=== PATIENT | female | born 1970 | race Caucasian/White ===

== ENCOUNTER 2018-04-14 08:51 | Inpatient (IN) | payer BC, MEDICAID ==
[~2018-04-14] VITALS: Ht 158.8 cm; Wt 109.1 kg
[~2018-04-14 08:51] MED LIST: LISI10TA PO
[2018-04-14] MEDS ORDERED: metoprolol tartrate 50mg tablet PO ONE (09:15)
[2018-04-14 09:18] LABS: BASOPHILS % (AUTO) 0.6 % (0-1); EOSINOPHILS # (AUTO) 0.2 X10'3 (0-0.9); EOSINOPHILS % (AUTO) 2.6 % (0-6); LYMPHOCYTES # (AUTO) 3.1 X10'3 (1.1-4.8); LYMPHOCYTES % (AUTO) 37.5 % (21-51); MEAN CORPUSCULAR HEMOGLOBIN 27.5 PG (27.0-31.0); MEAN CORPUSCULAR HGB CONC 33.3 % (33.0-36.5); MEAN CORPUSCULAR VOLUME 82.6 FL (78-98); MONOCYTES # (AUTO) 0.6 X10'3 (0-0.9); MONOCYTES % (AUTO) 7.3 % (2-12); NEUTROPHILS # (AUTO) 4.3 X10'3 (1.8-7.7); PLATELET COUNT 341 X10'3 (140-440); RED BLOOD COUNT 5.46 X10'6 (4.20-5.60); RED CELL DISTRIBUTION WIDTH 12.8 % (11.5-14.5); WHITE BLOOD COUNT 8.2 X10'3 (4.5-11.0)
[2018-04-14 09:31] LABS: ALANINE AMINOTRANSFERASE 22 U/L (12-78); ALBUMIN 3.7 G/DL (3.4-5.0); ALKALINE PHOSPHATASE 77 IU/L (46-116); ANION GAP 7 (8-16); ASPARTATE AMINO TRANSFERASE 13 U/L (10-37); BILIRUBIN,TOTAL 0.5 MG/DL (0.1-1.0); BLOOD UREA NITROGEN 12 MG/DL (7-18); CHLORIDE 102 MMOL/L (99-107); CREATININE 0.86 MG/DL (0.40-0.90); GLUCOSE 188 MG/DL (70-104); POTASSIUM 3.3 MMOL/L (3.5-5.1); SODIUM 138 MMOL/L (135-145); TOTAL CARBON DIOXIDE 29.3 MMOL/L (24-32); TOTAL PROTEIN 7.4 G/DL (6.4-8.2); eGFR 70 ML/MIN
[2018-04-14 09:40] LABS: TROPONIN I < 0.04 NG/ML (0.0-0.05)
[2018-04-14] MEDS ORDERED: aspirin 325mg tablet PO ONE ×2 (09:55→10:45)
[2018-04-14] MEDS ORDERED: normal saline 1000ML IV soln IVB ONE (09:55)
[2018-04-14 10:01] LABS: PARTIAL THROMBOPLASTIN TIME 25 SECONDS (22-32); PROTHROMBIN TIME 10.4 SECONDS (9.0-12.0)
[2018-04-14] MEDS ORDERED: CLOP75TA15 PO (10:32)
[2018-04-14] MEDS ORDERED: MESSAGE TO PHARMACY PO ONE (10:35)
[2018-04-14] MEDS ORDERED: dextrose ORAL solution 15 GM/59 ML bottle PO PRN ×2 (10:35)
[2018-04-14] MEDS ORDERED: magnesium hydroxide 30ml (MOM) UD suspension PO PRN (10:35)
[2018-04-14] MEDS ORDERED: dextrose 50%-water 50ml dispensing syringe IV PRN ×2 (10:35)
[2018-04-14] MEDS ORDERED: glucagon, human recombinant 1mg kit SUBCUT PRN (10:35)
[2018-04-14] MEDS ORDERED: mag hydrox/Alum hydrox/simeth 30ml oral suspension PO PRN (10:35)
[2018-04-14] MEDS ORDERED: acetaminophen 325mg tablet PO PRN (10:35)
[2018-04-14] MEDS ORDERED: VENL37.55 PO (10:40)
[2018-04-14 11:20] VITALS: BP 177/96
[2018-04-14] MEDS: cloNIDine 0.1 mg tablet PO PRN (11:59)
[2018-04-14] MEDS ORDERED: potassium Cl 40MEQ/NS 500ml 500 ML IV PRN ×2 (12:45)
[2018-04-14] MEDS: potassium Cl 20 mEq SR tablet PO PRN ×3 (13:43→22:08)
[2018-04-14] MEDS ORDERED: hydrALAZINE 25 MG tablet PO SCH (16:00)
[2018-04-14] MEDS: meclizine 12.5mg tablet PO PRN (17:46)
[2018-04-14 18:00] VITALS: BP 151/90
[2018-04-14] MEDS: insulin Lispro (HumaLOG) vial - multi-dose SQ SCH (18:57)
[2018-04-14] MEDS: venlafaxine XR 37.5mg cap (Q24H) PO SCH (19:38)
[2018-04-14 20:00] VITALS: BP_SYST 155; BP_SYST 156; BP_SYST 164; BP_DIAS 82; BP_DIAS 87; BP_DIAS 93
[2018-04-14] MEDS: insulin glargine (Lantus) pen - multi-dose SQ SCH (20:58)
[2018-04-14] MEDS ORDERED: insulin glargine (Lantus) pen - multi-dose SQ SCH (21:00)
[2018-04-14] MEDS: ondansetron/PF 4mg/2ml inj IV PRN (21:08)
[2018-04-14 22:00] VITALS: BP 181/95
[2018-04-14 22:55] VITALS: BP 149/79
[2018-04-15] VITALS (9 sets, daily range): BP systolic 137–190; BP diastolic 68–112
[2018-04-15] MEDS: ondansetron/PF 4mg/2ml inj IV PRN ×2 (03:28→12:32)
[2018-04-15] MEDS: meclizine 12.5mg tablet PO PRN (05:37)
[2018-04-15] MEDS: cloNIDine 0.1 mg tablet PO PRN ×2 (05:37→17:26)
[2018-04-15 06:58] LABS: BASOPHILS % (AUTO) 0.1 % (0-1); EOSINOPHILS % (AUTO) 0.3 % (0-6); HEMATOCRIT 42.7 % (35.0-45.0); HEMOGLOBIN 14.6 g/dl (12.0-16.0); LYMPHOCYTES # (AUTO) 1.4 X10'3 (1.1-4.8); LYMPHOCYTES % (AUTO) 13.2 % (21-51); MEAN CORPUSCULAR HEMOGLOBIN 28.2 PG (27.0-31.0); MEAN CORPUSCULAR HGB CONC 34.1 % (33.0-36.5); MEAN CORPUSCULAR VOLUME 82.5 FL (78-98); MEAN PLATELET VOLUME 8.1 FL (7.4-10.4); MONOCYTES # (AUTO) 0.4 X10'3 (0-0.9); MONOCYTES % (AUTO) 3.6 % (2-12); NEUTROPHILS # (AUTO) 8.6 X10'3 (1.8-7.7); NEUTROPHILS % (AUTO) 82.8 % (42-75); PLATELET COUNT 333 X10'3 (140-440); RED BLOOD COUNT 5.17 X10'6 (4.20-5.60); RED CELL DISTRIBUTION WIDTH 12.9 % (11.5-14.5); WHITE BLOOD COUNT 10.4 X10'3 (4.5-11.0)
[2018-04-15 07:17] LABS: ALANINE AMINOTRANSFERASE 19 U/L (12-78); ALBUMIN 3.5 G/DL (3.4-5.0); ALKALINE PHOSPHATASE 72 IU/L (46-116); ANION GAP 9 (8-16); ASPARTATE AMINO TRANSFERASE 11 U/L (10-37); BILIRUBIN,TOTAL 0.4 MG/DL (0.1-1.0); BLOOD UREA NITROGEN 13 MG/DL (7-18); BUN/CREATININE RATIO 13.7 (6.6-38.0); CALCIUM 8.8 MG/DL (8.5-10.1); CHLORIDE 101 MMOL/L (99-107); CREATININE 0.95 MG/DL (0.40-0.90); GLUCOSE 238 MG/DL (70-104); MAGNESIUM 1.8 MG/DL (1.5-2.4); POTASSIUM 3.5 MMOL/L (3.5-5.1); SODIUM 138 MMOL/L (135-145); TOTAL CARBON DIOXIDE 27.8 MMOL/L (24-32); TOTAL PROTEIN 7.1 G/DL (6.4-8.2); eGFR 63 ML/MIN
[2018-04-15] MEDS: clopidogrel 75mg tablet PO SCH ×3 (07:21→12:33)
[2018-04-15] MEDS: venlafaxine XR 37.5mg cap (Q24H) PO SCH ×4 (07:21→19:29)
[2018-04-15] MEDS: lisinopril 10 MG tablet PO SCH ×3 (07:21→12:33)
[2018-04-15] MEDS: enoxaparin 40mg/0.4ml syringe SUBCUT SCH ×2 (07:21→08:23)
[2018-04-15] MEDS: insulin Lispro (HumaLOG) vial - multi-dose SQ SCH ×3 (08:21→18:34)
[2018-04-15] MEDS ORDERED: atorvastatin 20mg tablet PO SCH (09:20)
[2018-04-15 10:00] LABS: CHOLESTEROL 247 MG/DL (0-200); HDL CHOLESTEROL 49 MG/DL (35-60); LDL CHOLESTEROL 167 MG/DL (50-100); TRIGLYCERIDES 174 MG/DL (20-135)
[2018-04-15] MEDS: normal saline 1000ml 1,000 ML IV SCH ×2 (10:43→19:29)
[2018-04-15] MEDS ORDERED: atorvastatin 20mg tablet PO ONE (13:30)
[2018-04-15] MEDS ORDERED: gadopentetate dimeglumine 7.5 MMOL/15 ML syringe ONE ×2 (16:22)
[2018-04-15] MEDS ORDERED: clopidogrel 75mg tablet PO ONE (16:25)
[2018-04-15] MEDS: meclizine 12.5mg tablet PO SCH ×2 (17:26→19:29)
[2018-04-15 21:07] LABS: CLARITY,URINE CLEAR (Clear); COLOR,URINE YELLOW (Yellow); GLUCOSE, URINE 100 mg/dl (Neg); KETONES,URINE NEGATIVE (Neg); LEUKOCYTE ESTERASE ,URINE NEGATIVE (Neg); NITRITES, URINE NEGATIVE (Neg); OCCULT BLOOD,URINE NEGATIVE (Neg); PROTEIN,URINE 100 mg/dl (Neg); UROBILINOGEN,URINE 0.2 E.U/dL (0.2-1.0)
[2018-04-15 21:08] LABS: UA COLLECTION TYPE NON-SPECIFIED
[2018-04-15 21:16] LABS: BACTERIA,URINE FEW /HPF (Neg); MUCUS STRANDS MODERATE /LPF (Neg); RBC,URINE 0-2 /HPF (0-2); SQUAMOUS EPITHELIAL CELL,UR FEW /LPF (FEW); WBC,URINE 0-4 /HPF (0-4)
[2018-04-15 21:17] LABS: URINE AMPHETAMINE SCREEN NEGATIVE (Neg); URINE BARBITUATE SCREEN NEGATIVE (Neg); URINE BENZODIAZEPINES SCREEN NEGATIVE (Neg); URINE CANNABINOID SCREEN NEGATIVE (Neg); URINE COCAINE SCREEN NEGATIVE (Neg); URINE METHADONE SCREEN NEGATIVE (Neg); URINE OPIATE SCREEN NEGATIVE (Neg); URINE PHENCYCLIDINE SCREEN NEGATIVE (Neg)
[2018-04-15] MEDS: insulin glargine (Lantus) pen - multi-dose SQ SCH (21:41)
[2018-04-16] VITALS (9 sets, daily range): BP systolic 119–188; BP diastolic 75–103
[2018-04-16] MEDS: meclizine 12.5mg tablet PO SCH ×4 (02:05→19:30)
[2018-04-16] MEDS: normal saline 1000ml 1,000 ML IV SCH ×3 (04:43→18:20)
[2018-04-16 05:50] LABS: BASOPHILS % (AUTO) 0.3 % (0-1); EOSINOPHILS # (AUTO) 0.1 X10'3 (0-0.9); EOSINOPHILS % (AUTO) 1.2 % (0-6); HEMATOCRIT 37.9 % (35.0-45.0); HEMOGLOBIN 12.4 g/dl (12.0-16.0); LYMPHOCYTES # (AUTO) 3.5 X10'3 (1.1-4.8); LYMPHOCYTES % (AUTO) 31.8 % (21-51); MEAN CORPUSCULAR HEMOGLOBIN 27.1 PG (27.0-31.0); MEAN CORPUSCULAR HGB CONC 32.8 % (33.0-36.5); MEAN CORPUSCULAR VOLUME 82.7 FL (78-98); MONOCYTES # (AUTO) 0.7 X10'3 (0-0.9); MONOCYTES % (AUTO) 6.3 % (2-12); NEUTROPHILS # (AUTO) 6.7 X10'3 (1.8-7.7); NEUTROPHILS % (AUTO) 60.4 % (42-75); PLATELET COUNT 311 X10'3 (140-440); RED BLOOD COUNT 4.58 X10'6 (4.20-5.60); RED CELL DISTRIBUTION WIDTH 13.6 % (11.5-14.5); WHITE BLOOD COUNT 11.2 X10'3 (4.5-11.0)
[2018-04-16 06:23] LABS: ALANINE AMINOTRANSFERASE 18 U/L (12-78); ALBUMIN 2.9 G/DL (3.4-5.0); ALBUMIN/GLOBULIN RATIO 0.9 (1.1-1.5); ALKALINE PHOSPHATASE 56 IU/L (46-116); ANION GAP 8 (8-16); ASPARTATE AMINO TRANSFERASE 9 U/L (10-37); BILIRUBIN,TOTAL 0.4 MG/DL (0.1-1.0); BLOOD UREA NITROGEN 15 MG/DL (7-18); BUN/CREATININE RATIO 14.7 (6.6-38.0); CALCIUM 8.3 MG/DL (8.5-10.1); CHLORIDE 106 MMOL/L (99-107); CREATININE 1.02 MG/DL (0.40-0.90); GLUCOSE 135 MG/DL (70-104); MAGNESIUM 1.8 MG/DL (1.5-2.4); SODIUM 143 MMOL/L (135-145); TOTAL CARBON DIOXIDE 29.5 MMOL/L (24-32); eGFR 58 ML/MIN
[2018-04-16] MEDS: clopidogrel 75mg tablet PO SCH (08:01)
[2018-04-16] MEDS: potassium Cl 20 mEq SR tablet PO PRN ×3 (08:01→16:58)
[2018-04-16] MEDS: venlafaxine XR 37.5mg cap (Q24H) PO SCH ×2 (08:01→19:30)
[2018-04-16] MEDS: enoxaparin 40mg/0.4ml syringe SUBCUT SCH (08:02)
[2018-04-16] MEDS: atorvastatin 20mg tablet PO SCH (08:02)
[2018-04-16] MEDS: lisinopril 10 MG tablet PO SCH (08:02)
[2018-04-16] MEDS: cloNIDine 0.1 mg tablet PO PRN ×2 (12:06→16:58)
[2018-04-16] MEDS: insulin Lispro (HumaLOG) vial - multi-dose SQ SCH (13:50)
[2018-04-16] MEDS ORDERED: magnesium 1gm/100ml D5W IVPB 100 ML IV PRN (17:50)
[2018-04-16] MEDS ORDERED: magnesium 4gm in 100ml NS 100 ML IV PRN (17:50)
[2018-04-16 19:17] LABS: MAGNESIUM 1.6 MG/DL (1.5-2.4); POTASSIUM 3.8 MMOL/L (3.5-5.1)
[2018-04-16] MEDS: insulin glargine (Lantus) pen - multi-dose SQ SCH (21:19)
[2018-04-17] VITALS (7 sets, daily range): BP systolic 122–202; BP diastolic 70–111
[2018-04-17] MEDS: meclizine 12.5mg tablet PO SCH ×2 (02:05→07:45)
[2018-04-17] MEDS: normal saline 1000ml 1,000 ML IV SCH ×2 (02:20→10:38)
[2018-04-17 05:24] LABS: BASOPHILS % (AUTO) 0.4 % (0-1); EOSINOPHILS # (AUTO) 0.1 X10'3 (0-0.9); EOSINOPHILS % (AUTO) 1.4 % (0-6); HEMATOCRIT 41.5 % (35.0-45.0); HEMOGLOBIN 13.8 g/dl (12.0-16.0); LYMPHOCYTES # (AUTO) 3.5 X10'3 (1.1-4.8); MEAN CORPUSCULAR HEMOGLOBIN 27.7 PG (27.0-31.0); MEAN CORPUSCULAR HGB CONC 33.3 % (33.0-36.5); MEAN CORPUSCULAR VOLUME 83.3 FL (78-98); MEAN PLATELET VOLUME 7.9 FL (7.4-10.4); MONOCYTES # (AUTO) 0.7 X10'3 (0-0.9); MONOCYTES % (AUTO) 6.9 % (2-12); NEUTROPHILS # (AUTO) 5.7 X10'3 (1.8-7.7); NEUTROPHILS % (AUTO) 56.3 % (42-75); PLATELET COUNT 305 X10'3 (140-440); RED BLOOD COUNT 4.99 X10'6 (4.20-5.60); RED CELL DISTRIBUTION WIDTH 14.4 % (11.5-14.5); WHITE BLOOD COUNT 10.1 X10'3 (4.5-11.0)
[2018-04-17 05:50] LABS: ALANINE AMINOTRANSFERASE 16 U/L (12-78); ALBUMIN 3.2 G/DL (3.4-5.0); ALBUMIN/GLOBULIN RATIO 0.9 (1.1-1.5); ALKALINE PHOSPHATASE 66 IU/L (46-116); ANION GAP 6 (8-16); ASPARTATE AMINO TRANSFERASE 7 U/L (10-37); BILIRUBIN,TOTAL 0.5 MG/DL (0.1-1.0); BLOOD UREA NITROGEN 13 MG/DL (7-18); BUN/CREATININE RATIO 13.4 (6.6-38.0); CALCIUM 8.4 MG/DL (8.5-10.1); CHLORIDE 103 MMOL/L (99-107); CREATININE 0.97 MG/DL (0.40-0.90); GLUCOSE 103 MG/DL (70-104); MAGNESIUM 1.6 MG/DL (1.5-2.4); POTASSIUM 3.4 MMOL/L (3.5-5.1); SODIUM 140 MMOL/L (135-145); TOTAL CARBON DIOXIDE 31.1 MMOL/L (24-32); TOTAL PROTEIN 6.7 G/DL (6.4-8.2); eGFR 61 ML/MIN
[2018-04-17] MEDS: cloNIDine 0.1 mg tablet PO PRN (06:00)
[2018-04-17] MEDS: venlafaxine XR 37.5mg cap (Q24H) PO SCH (07:45)
[2018-04-17] MEDS: atorvastatin 20mg tablet PO SCH (07:46)
[2018-04-17] MEDS: clopidogrel 75mg tablet PO SCH (07:46)
[2018-04-17] MEDS: lisinopril 10 MG tablet PO SCH (07:46)
[2018-04-17] MEDS: enoxaparin 40mg/0.4ml syringe SUBCUT SCH (07:51)
[2018-04-17] MEDS: insulin Lispro (HumaLOG) vial - multi-dose SQ SCH ×2 (09:08→13:32)
[2018-04-17] MEDS: potassium Cl 20 mEq SR tablet PO PRN (09:10)
[2018-04-17] MEDS ORDERED: ASPI-1071 PO (10:51)
[2018-04-17] MEDS ORDERED: ATOR20TA66 PO (10:51)
[2018-04-17] MEDS ORDERED: meclizine 12.5mg tablet PO SCH (14:00)
[2018-04-17] MEDS ORDERED: potassium Cl 20 mEq SR tablet PO PRN (14:25)
[2018-04-18] MEDS ORDERED: aspirin 81mg tablet.DR PO SCH (08:00)
== END 2018-04-17 17:11 | DRG 46 ==
LOC: ER 08:51 → ED HOLD 10:33 → ORTHO 4S 12:10
PROVIDERS: ADMIT Internal Medicine; ATTEND Family Medicine
DX: I66.8 Occlusion and stenosis of other cerebral arteries (principal); E11.65 Type 2 diabetes mellitus with hyperglycemia; Z79.82 Long term (current) use of aspirin; E66.01 Morbid (severe) obesity due to excess calories; E78.00 Pure hypercholesterolemia, unspecified; I10 Essential (primary) hypertension; F32.9 Major depressive disorder, single episode, unspecified; I25.10 Atherosclerotic heart disease of native coronary artery without angina pectoris; E78.5 Hyperlipidemia, unspecified; E87.6 Hypokalemia; R27.0 Ataxia, unspecified; G46.3 Brain stem stroke syndrome; I25.2 Old myocardial infarction; Z79.4 Long term (current) use of insulin; Z86.73 Personal history of transient ischemic attack (TIA), and cerebral infarction without residual deficits; Z87.892 Personal history of anaphylaxis; Z23 Encounter for immunization; Z91.041 Radiographic dye allergy status; Z79.899 Other long term (current) drug therapy; Z98.51 Tubal ligation status; Z68.41 Body mass index [BMI] 40.0-44.9, adult
CPT/HCPCS: 36415; 70450; 70544; 70549; 70551; 71045; 80053; 80061; 80305; 81001; 82948; 83036; 83735; 83880; 84132; 84484; 85025; 85610; 85730; 87070; 93005; 93306; 93880; 97110; 97116; 97162; 97530; 99285; A9579; J1650; J1815; J2405; J7030; J8597; Q2037

== ENCOUNTER 2018-12-06 12:54 | Outpatient (CLI) | payer MEDICAID ==
[~2018-12-06 12:54] MED LIST changes: +ASPI-1071 PO; +ATOR20TA66 PO; +CLOP75TA15 PO; +VENL37.55 PO
[2018-12-06] MEDS ORDERED: BARIUM SULFATE 340 ML SUSP.RECON***PROCEDURE AREA ONLY**DONT ENTER PO ONE (17:45)
== END 2018-12-06 23:59 | disposition home or self-care (01) ==
LOC: RAD 12:54
PROVIDERS: ATTEND Family Medicine
DX: I69.391 Dysphagia following cerebral infarction (principal); R13.14 Dysphagia, pharyngoesophageal phase; I10 Essential (primary) hypertension; E11.9 Type 2 diabetes mellitus without complications; J45.909 Unspecified asthma, uncomplicated
CPT/HCPCS: 74230

== ENCOUNTER 2020-03-19 16:36 | Inpatient (IN) | payer MEDICAID ==
[~2020-03-19] VITALS: Ht 157.5 cm; Wt 122.2 kg
[2020-03-19] MEDS: insulin glargine (Lantus) pen - multi-dose SQ SCH (01:00)
--- NOTE | 2020-03-19 17:01 | NUR ---
Patient taken to room 10 via w/c. while trying to assist patient to bed patient states "now my leg is not working". Additional staff members to assist pt to bed.
--- NOTE | 2020-03-19 17:03 | NUR ---
pt to ct via wc
[2020-03-19] MEDS ORDERED: aspirin 81mg tab.chew PO ONE (17:05)
[2020-03-19 17:32] LABS: BASOPHILS # (AUTO) 0.1 X10'3 (0-0.2); EOSINOPHILS # (AUTO) 0.2 X10'3 (0-0.9); EOSINOPHILS % (AUTO) 1.9 % (0-6); HEMATOCRIT 48.5 % (35.0-45.0); LYMPHOCYTES # (AUTO) 2.4 X10'3 (1.1-4.8); LYMPHOCYTES % (AUTO) 23.6 % (21-51); MEAN CORPUSCULAR HEMOGLOBIN 27.6 PG (27.0-31.0); MEAN CORPUSCULAR VOLUME 83.7 FL (78-98); MEAN PLATELET VOLUME 7.8 FL (7.4-10.4); MONOCYTES # (AUTO) 0.7 X10'3 (0-0.9); MONOCYTES % (AUTO) 6.6 % (2-12); NEUTROPHILS # (AUTO) 6.9 X10'3 (1.8-7.7); NEUTROPHILS % (AUTO) 66.9 % (42-75); PLATELET COUNT 407 X10'3 (140-440); RED CELL DISTRIBUTION WIDTH 15.5 % (11.5-14.5); WHITE BLOOD COUNT 10.3 X10'3 (4.5-11.0)
[2020-03-19] MEDS ORDERED: LORazepam 2 mg/ml vial IV ONE (17:35)
--- NOTE | 2020-03-19 17:35 | NUR ---
called for level 1 with onset approx 1602-4225 today. Pt describes right arm and leg went "numb." Currently c/o right arm and right leg numbness. 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 Pt says she was in [place] at the time, being treated for pna. She describes it as "brain stem" stroke and had severe vertigo and dizziness and was unable to swallow. Currently has a PEG tube.
[2020-03-19] MEDS ORDERED: labetalol 20mg/4ml (5mg/ml) syringe IV ONE ×2 (17:40→18:20)
--- NOTE | 2020-03-19 17:42 | NUR ---
pt's arm flails with any movement. Right leg moves and is able to lift off bed but not easily. Vision is intact. Pt has not taken any meds for some time. H/O htn, DM. Is not taking any meds for any of these conditions. She spits frequently into a spit bad due to increased saliva. BS is 226 and BP is 184/128 in lower left arm. Tele med exam with Dr Luque completed. No rec for TPA. Discussed with provider, Nadine Abbasi.
[2020-03-19 17:43] LABS: PARTIAL THROMBOPLASTIN TIME 24 SECONDS (22-32)
[2020-03-19 17:46] LABS: ALANINE AMINOTRANSFERASE 38 U/L (12-78); ALBUMIN 2.5 G/DL (3.4-5.0); ALBUMIN/GLOBULIN RATIO 0.6 (1.1-1.5); ALKALINE PHOSPHATASE 113 IU/L (46-116); ANION GAP 8 (8-16); ASPARTATE AMINO TRANSFERASE 27 U/L (10-37); BILIRUBIN,TOTAL 0.4 MG/DL (0.1-1.0); BLOOD UREA NITROGEN 22 MG/DL (7-18); BUN/CREATININE RATIO 16.2 (6.6-38.0); CALCIUM 8.6 MG/DL (8.5-10.1); CHLORIDE 99 MMOL/L (99-107); CREATININE 1.36 MG/DL (0.40-0.90); GLUCOSE 230 MG/DL (70-104); POTASSIUM 3.6 MMOL/L (3.5-5.1); SODIUM 134 MMOL/L (135-145); TOTAL CARBON DIOXIDE 27.3 MMOL/L (24-32); TOTAL PROTEIN 6.5 G/DL (6.4-8.2); eGFR 41 ML/MIN
[2020-03-19 17:52] LABS: TROPONIN I 1.29 NG/ML (0.0-0.05)
[2020-03-19] MEDS ORDERED: heparin 10,000 units/1 ML INJ IV ONE ×2 (17:55→18:25)
[2020-03-19] MEDS ORDERED: nitroGLYCERIN 1gm ointment UD TP ONE (17:55)
--- NOTE | 2020-03-19 18:15 | NUR ---
Improved after receiving 1mg of Ativan, arm no longer flailing and right leg moves well and easily. Breathing pattern is normal. Says right hand is still "numb." Labetalol for htn with some improvement noted. Drowzy, but easily awakens.
[2020-03-19] MEDS: heparin 25,000 UNIT/250ml bag 250 ML IV SCH (18:29)
[2020-03-19] MEDS ORDERED: magnesium 4gm in 100ml NS 100 ML IV PRN (19:40)
[2020-03-19] MEDS ORDERED: ondansetron/PF 4mg/2ml inj IV PRN (19:40)
[2020-03-19] MEDS ORDERED: potassium CL 10mEq/100ml bag 100 ML IV PRN ×2 (19:40)
[2020-03-19] MEDS ORDERED: magnesium 2GM in 50ml NS 50 ML IV PRN (19:40)
[2020-03-19] MEDS ORDERED: dextrose 50%-water 50ml dispensing syringe IV PRN ×2 (19:50)
[2020-03-19] MEDS ORDERED: dextrose ORAL solution 15 GM/59 ML bottle PO PRN ×2 (19:50)
[2020-03-19] MEDS ORDERED: glucagon, human recombinant 1mg kit SUBCUT PRN (19:50)
[2020-03-19] MEDS ORDERED: MESSAGE TO PHARMACY PO ONE (19:50)
[2020-03-19] MEDS: K and/or MAG REPLACEMENT MC SCH (20:00)
[2020-03-19] MEDS ORDERED: NO HOME MEDS (20:07)
[2020-03-19 20:08] LABS: HEMOGLOBIN A1C 9.3 % (4.5-6.2)
[2020-03-19] MEDS: enalaprilat dihydrate 2.5mg/2ml vial IV SCH (20:41)
--- NOTE | 2020-03-19 21:40 | NUR ---
Patient in room ORTHO 4023. I have received report from Debbie BUITRAGO and had the opportunity to ask questions and assume patient care.
[2020-03-19 21:45] VITALS: BP 151/99
[2020-03-20 02:00] VITALS: BP 148/94
[2020-03-20] MEDS: enalaprilat dihydrate 2.5mg/2ml vial IV SCH ×3 (02:00→14:00)
[2020-03-20] MEDS: insulin Lispro (HumaLOG) vial - multi-dose SQ SCH ×4 (02:01→19:04)
[2020-03-20] MEDS: normal saline 1000ml 1,000 ML IV SCH (02:06)
[2020-03-20] MEDS: heparin 25,000 UNIT/250ml bag 250 ML IV SCH ×2 (02:39→09:37)
[2020-03-20 03:33] LABS: BASOPHILS # (AUTO) 0.1 X10'3 (0-0.2); BASOPHILS % (AUTO) 1.1 % (0-1); EOSINOPHILS # (AUTO) 0.2 X10'3 (0-0.9); EOSINOPHILS % (AUTO) 2.2 % (0-6); HEMATOCRIT 44.2 % (35.0-45.0); HEMOGLOBIN 14.3 g/dl (12.0-16.0); LYMPHOCYTES # (AUTO) 2.9 X10'3 (1.1-4.8); LYMPHOCYTES % (AUTO) 32.3 % (21-51); MEAN CORPUSCULAR HEMOGLOBIN 26.8 PG (27.0-31.0); MEAN CORPUSCULAR HGB CONC 32.4 g/dL (33.0-36.5); MEAN CORPUSCULAR VOLUME 82.7 FL (78-98); MEAN PLATELET VOLUME 7.9 FL (7.4-10.4); MONOCYTES # (AUTO) 0.6 X10'3 (0-0.9); MONOCYTES % (AUTO) 7.1 % (2-12); NEUTROPHILS # (AUTO) 5.1 X10'3 (1.8-7.7); NEUTROPHILS % (AUTO) 57.3 % (42-75); PLATELET COUNT 377 X10'3 (140-440); RED BLOOD COUNT 5.34 X10'6 (4.20-5.60); RED CELL DISTRIBUTION WIDTH 15.2 % (11.5-14.5); WHITE BLOOD COUNT 8.9 X10'3 (4.5-11.0)
[2020-03-20 03:45] LABS: ALANINE AMINOTRANSFERASE 35 U/L (12-78); ALBUMIN 2.2 G/DL (3.4-5.0); ALBUMIN/GLOBULIN RATIO 0.6 (1.1-1.5); ALKALINE PHOSPHATASE 91 IU/L (46-116); ANION GAP 7 (8-16); ASPARTATE AMINO TRANSFERASE 22 U/L (10-37); BILIRUBIN,TOTAL 0.4 MG/DL (0.1-1.0); BLOOD UREA NITROGEN 20 MG/DL (7-18); BUN/CREATININE RATIO 18.5 (6.6-38.0); CALCIUM 8.2 MG/DL (8.5-10.1); CHLORIDE 102 MMOL/L (99-107); CREATININE 1.08 MG/DL (0.40-0.90); GLUCOSE 216 MG/DL (70-104); POTASSIUM 3.2 MMOL/L (3.5-5.1); SODIUM 137 MMOL/L (135-145); TOTAL CARBON DIOXIDE 27.8 MMOL/L (24-32); TOTAL PROTEIN 5.7 G/DL (6.4-8.2); eGFR 54 ML/MIN
[2020-03-20 03:48] LABS: CHOL/HDL RATIO 4.4 (0.00-4.99); CHOLESTEROL 169 MG/DL (0-200); HDL CHOLESTEROL 38 MG/DL (35-60); LDL CHOLESTEROL 110 MG/DL (50-100); MAGNESIUM 1.8 MG/DL (1.5-2.4); TRIGLYCERIDES 159 MG/DL (20-135)
[2020-03-20 06:00] VITALS: BP 142/99
--- NOTE | 2020-03-20 06:35 | NUR ---
Patient in room ORTHO 4023. I have received report from Karin and had the opportunity to ask questions and assume patient care.
--- NOTE | 2020-03-20 06:45 | NUR ---
Problems reprioritized. Patient report given, questions answered & plan of care reviewed with Devi BUITRAGO.
[2020-03-20] MEDS: K and/or MAG REPLACEMENT MC SCH ×2 (08:00→19:28)
[2020-03-20 10:00] VITALS: BP 178/96
--- NOTE | 2020-03-20 10:17 | NUR ---
PAGER ID: [phone] MESSAGE: Good morning, Ms. Albarado in 0207M has critical troponin of 1.82, trending up, just i
[2020-03-20] MEDS ORDERED: potassium Cl 20 mEq SR tablet PO PRN (14:25)
[2020-03-20] MEDS ORDERED: potassium CL 10mEq/100ml bag 100 ML IV PRN (14:25)
[2020-03-20] MEDS ORDERED: magnesium Cl slow-release 64mg tablet PO PRN (14:25)
[2020-03-20] MEDS ORDERED: furosemide 40mg/4ml inj IV ONE (14:25)
[2020-03-20] MEDS ORDERED: magnesium 4gm in 100ml NS 100 ML IV PRN (14:25)
--- NOTE | 2020-03-20 15:36 | NUR ---
DM/Rodney Consults: Rodney 12; skin intact. Pt admit w/ possible CVA hx prior CVA's resulting in dysphagia requiring G-tube for nutrition needs. Per EMR G-tube has not been used in months as swallowing improves and Pt advanced to carb controlled/thin liquid diet per [employer] today. Noted TG 159 and LDL 110 on admit as well. Pt seen by RD for written/verbal DM/HH diet eds w/ RD contact information provided. Hx not actively managing DM/HTN per EMR and pt reports is going to try lower carb diet at home. RD educated pt on importance of carbs and avoiding fad diets such as keto given risk for DKA/stroke/pancreatitis. Pt declines further verbal review at this time; continuously spitting into cup and looks as if about to vomit though RN reports has been behavior all day today and no N/V at this time. RD encouraged pt to contact dietitian's office if further questions. To f/u 03/24 for initial assessment. Addendum: 03/20/20 at [address] Amended: Links added.
[2020-03-20] MEDS ORDERED: LORazepam 0.5 MG tablet PO PRN (15:45)
[2020-03-20] MEDS: potassium Cl 20 mEq SR tablet PO PRN ×2 (16:15→21:05)
[2020-03-20 18:00] VITALS: BP 147/95
--- NOTE | 2020-03-20 18:28 | NUR ---
Problems reprioritized. Patient report given, questions answered & plan of care reviewed with
--- NOTE | 2020-03-20 18:49 | NUR ---
Patient in room ORTHO 4023. I have received report from Devi BUITRAGO and had the opportunity to ask questions and assume patient care.
[2020-03-20] MEDS: furosemide 40mg/4ml inj IV SCH (19:26)
[2020-03-20] MEDS: carvedilol 6.25mg tablet PO SCH (19:27)
[2020-03-20] MEDS: nystatin 15 GM powder TP SCH (19:28)
[2020-03-20] MEDS: insulin glargine (Lantus) pen - multi-dose SQ SCH (21:05)
[2020-03-20 22:00] VITALS: BP 147/103
--- NOTE | 2020-03-20 22:42 | NUR ---
Patient given Aspirin in the ER. Addendum: 03/20/20 at 2243 by Maryanne Burleson RN Amended: Links added.
[2020-03-21] VITALS (8 sets, daily range): BP systolic 118–154; BP diastolic 78–103
[2020-03-21] MEDS: potassium Cl 20 mEq SR tablet PO PRN ×3 (01:35→13:49)
--- NOTE | 2020-03-21 06:36 | NUR ---
Problems reprioritized. Patient report given, questions answered & plan of care reviewed with Sydnee BUITRAGO.
[2020-03-21 07:37] LABS: BASOPHILS # (AUTO) 0.1 X10'3 (0-0.2); BASOPHILS % (AUTO) 0.8 % (0-1); EOSINOPHILS # (AUTO) 0.2 X10'3 (0-0.9); EOSINOPHILS % (AUTO) 2.2 % (0-6); HEMATOCRIT 46.4 % (35.0-45.0); HEMOGLOBIN 15.1 g/dl (12.0-16.0); LYMPHOCYTES # (AUTO) 1.6 X10'3 (1.1-4.8); LYMPHOCYTES % (AUTO) 19.1 % (21-51); MEAN CORPUSCULAR HGB CONC 32.5 g/dL (33.0-36.5); MONOCYTES # (AUTO) 0.7 X10'3 (0-0.9); MONOCYTES % (AUTO) 8.5 % (2-12); NEUTROPHILS % (AUTO) 69.4 % (42-75); PLATELET COUNT 404 X10'3 (140-440); RED BLOOD COUNT 5.59 X10'6 (4.20-5.60); RED CELL DISTRIBUTION WIDTH 15.1 % (11.5-14.5); WHITE BLOOD COUNT 8.6 X10'3 (4.5-11.0)
[2020-03-21 07:42] LABS: ALANINE AMINOTRANSFERASE 32 U/L (12-78); ALBUMIN 2.3 G/DL (3.4-5.0); ALBUMIN/GLOBULIN RATIO 0.6 (1.1-1.5); ALKALINE PHOSPHATASE 86 IU/L (46-116); ANION GAP 9 (8-16); ASPARTATE AMINO TRANSFERASE 23 U/L (10-37); BILIRUBIN,TOTAL 0.6 MG/DL (0.1-1.0); BLOOD UREA NITROGEN 14 MG/DL (7-18); BUN/CREATININE RATIO 15.9 (6.6-38.0); CALCIUM 8.2 MG/DL (8.5-10.1); CHLORIDE 103 MMOL/L (99-107); CREATININE 0.88 MG/DL (0.40-0.90); GLUCOSE 163 MG/DL (70-104); MAGNESIUM 1.6 MG/DL (1.5-2.4); POTASSIUM 3.2 MMOL/L (3.5-5.1); SODIUM 142 MMOL/L (135-145); TOTAL CARBON DIOXIDE 29.7 MMOL/L (24-32); TOTAL PROTEIN 5.9 G/DL (6.4-8.2); eGFR 68 ML/MIN
[2020-03-21] MEDS ORDERED: lisinopril 5mg tablet PO SCH (08:00)
[2020-03-21] MEDS: K and/or MAG REPLACEMENT MC SCH ×2 (08:21→19:26)
[2020-03-21] MEDS: furosemide 40mg/4ml inj IV SCH ×2 (08:25→19:32)
[2020-03-21] MEDS: carvedilol 6.25mg tablet PO SCH ×2 (08:26→19:33)
[2020-03-21] MEDS: aspirin 325mg tablet PO SCH (08:26)
[2020-03-21] MEDS: atorvastatin 20mg tablet PO SCH (08:26)
[2020-03-21] MEDS: nystatin 15 GM powder TP SCH ×2 (08:36→19:35)
[2020-03-21] MEDS: insulin Lispro (HumaLOG) vial - multi-dose SQ SCH ×3 (09:07→19:14)
[2020-03-21] MEDS ORDERED: POTASSIUM BICARB 20meq eff tab 20 MEQ TABLET.EFF PO PRN (14:39)
[2020-03-21] MEDS: POTASSIUM BICARB 20meq eff tab 20 MEQ TABLET.EFF PO PRN (17:54)
--- NOTE | 2020-03-21 18:28 | NUR ---
Problems reprioritized. Patient report given, questions answered & plan of care reviewed with Maryanne BUITRAGO.
--- NOTE | 2020-03-21 18:40 | NUR ---
Patient in room ORTHO 4020. I have received report from Sydnee BUITRAGO and had the opportunity to ask questions and assume patient care.
[2020-03-21] MEDS: lisinopril 5mg tablet PO SCH ×2 (18:45→19:35)
[2020-03-21] MEDS: normal saline 1000ml 1,000 ML IV SCH (19:32)
[2020-03-21] MEDS: insulin glargine (Lantus) pen - multi-dose SQ SCH (21:49)
[2020-03-22 02:00] VITALS: BP 150/81
[2020-03-22 06:00] VITALS: BP 146/94
--- NOTE | 2020-03-22 06:11 | NUR ---
Problems reprioritized. Patient report given, questions answered & plan of care reviewed with Sydnee BUITRAGO.
[2020-03-22 06:46] LABS: BASOPHILS # (AUTO) 0.1 X10'3 (0-0.2); BASOPHILS % (AUTO) 0.8 % (0-1); EOSINOPHILS # (AUTO) 0.2 X10'3 (0-0.9); EOSINOPHILS % (AUTO) 2.4 % (0-6); HEMATOCRIT 48.2 % (35.0-45.0); HEMOGLOBIN 15.9 g/dl (12.0-16.0); LYMPHOCYTES # (AUTO) 2.3 X10'3 (1.1-4.8); LYMPHOCYTES % (AUTO) 24.6 % (21-51); MEAN CORPUSCULAR HEMOGLOBIN 27.2 PG (27.0-31.0); MEAN CORPUSCULAR VOLUME 82.4 FL (78-98); MEAN PLATELET VOLUME 7.6 FL (7.4-10.4); MONOCYTES # (AUTO) 0.9 X10'3 (0-0.9); NEUTROPHILS % (AUTO) 63.2 % (42-75); PLATELET COUNT 403 X10'3 (140-440); RED BLOOD COUNT 5.85 X10'6 (4.20-5.60); RED CELL DISTRIBUTION WIDTH 15.1 % (11.5-14.5); WHITE BLOOD COUNT 9.5 X10'3 (4.5-11.0)
[2020-03-22 07:06] LABS: ALANINE AMINOTRANSFERASE 31 U/L (12-78); ALBUMIN 2.4 G/DL (3.4-5.0); ALBUMIN/GLOBULIN RATIO 0.7 (1.1-1.5); ALKALINE PHOSPHATASE 84 IU/L (46-116); ANION GAP 8 (8-16); ASPARTATE AMINO TRANSFERASE 21 U/L (10-37); BILIRUBIN,TOTAL 0.6 MG/DL (0.1-1.0); BLOOD UREA NITROGEN 19 MG/DL (7-18); BUN/CREATININE RATIO 18.3 (6.6-38.0); CALCIUM 8.4 MG/DL (8.5-10.1); CHLORIDE 101 MMOL/L (99-107); CREATININE 1.04 MG/DL (0.40-0.90); GLUCOSE 139 MG/DL (70-104); MAGNESIUM 1.6 MG/DL (1.5-2.4); POTASSIUM 3.4 MMOL/L (3.5-5.1); SODIUM 140 MMOL/L (135-145); TOTAL CARBON DIOXIDE 30.8 MMOL/L (24-32); eGFR 56 ML/MIN
[2020-03-22] MEDS: atorvastatin 20mg tablet PO SCH (07:57)
[2020-03-22] MEDS: aspirin 325mg tablet PO SCH (07:57)
[2020-03-22] MEDS: POTASSIUM BICARB 20meq eff tab 20 MEQ TABLET.EFF PO PRN (07:58)
[2020-03-22 08:00] VITALS: BP 127/80
[2020-03-22] MEDS: carvedilol 6.25mg tablet PO SCH (08:04)
[2020-03-22] MEDS: furosemide 40mg/4ml inj IV SCH (08:04)
[2020-03-22] MEDS: lisinopril 5mg tablet PO SCH (08:05)
[2020-03-22] MEDS: nystatin 15 GM powder TP SCH (08:16)
[2020-03-22] MEDS: K and/or MAG REPLACEMENT MC SCH (08:16)
[2020-03-22] MEDS: insulin Lispro (HumaLOG) vial - multi-dose SQ SCH (09:16)
[2020-03-22 10:00] VITALS: BP 141/84
[2020-03-22] MEDS ORDERED: CLOP75TA15 PO (10:28)
[2020-03-22] MEDS ORDERED: ASPI-1 PO (10:28)
[2020-03-22] MEDS ORDERED: ATOR20TA66 PO (10:28)
[2020-03-22] MEDS ORDERED: LISI-642 PO (10:28)
[2020-03-22] MEDS ORDERED: FURO40TA4 PO (10:28)
[2020-03-22] MEDS ORDERED: CARV6.253 PO (10:28)
[2020-03-22] MEDS ORDERED: INSU100V9 SQ (10:28)
--- NOTE | 2020-03-22 10:46 | NUR ---
PAGER ID: [phone] MESSAGE: [phone] Per Zimmerman- can we get a physicians order form for patient- patient doesn't have glucometer, lancets, or strips at home. Sydnee [phone]
--- NOTE | 2020-03-22 11:22 | NUR ---
prescription called to pharmacy- [facility].
--- NOTE | 2020-03-22 11:29 | NUR ---
Called patient twice to inform of patients discharge. He did not answer. Will attempt again later.
--- NOTE | 2020-03-22 11:55 | NUR ---
Patient given education about diabetes, mijares, medication, and importance on following up with PCP. Patient was given a prescription for a glucometer, lancets, and strips. Called prescriptions to [facility] in [place], patient made aware. All belongings sent home with patient. PIV removed, cannula intact.
== END 2020-03-22 11:55 | disposition home or self-care (01) | DRG 45 ==
LOC: ER 16:37 → ED HOLD 19:36 → ORTHO 4S 22:38
PROVIDERS: ADMIT Internal Medicine; ATTEND Internal Medicine
DX: I63.9 Cerebral infarction, unspecified (principal); E11.65 Type 2 diabetes mellitus with hyperglycemia; E66.01 Morbid (severe) obesity due to excess calories; I11.0 Hypertensive heart disease with heart failure; I50.23 Acute on chronic systolic (congestive) heart failure; I16.0 Hypertensive urgency; I21.A1 Myocardial infarction type 2; I25.2 Old myocardial infarction; R03.0 Elevated blood-pressure reading, without diagnosis of hypertension; Z79.4 Long term (current) use of insulin; Z79.02 Long term (current) use of antithrombotics/antiplatelets; Z86.73 Personal history of transient ischemic attack (TIA), and cerebral infarction without residual deficits; Z87.892 Personal history of anaphylaxis; Z68.42 Body mass index [BMI] 45.0-49.9, adult
CPT/HCPCS: 36415; 70450; 71045; 80053; 80061; 82948; 83036; 83735; 83880; 84484; 85025; 85610; 85730; 87081; 92508; 92616; 93005; 93306; 96365; 96374; 96375; 96376; 97110; 97112; 97116; 97162; 97530; G0378; J1644; J1815; J1940; J2060; J3490; J7030

== ENCOUNTER 2020-09-09 08:18 | Day surgery (SDC) | payer MEDICAID ==
[~2020-09-09] VITALS: Ht 158.8 cm; Wt 141.4 kg
[2020-09-09] VITALS (7 sets, daily range): BP systolic 142–166; BP diastolic 75–101
[~2020-09-09 08:18] MED LIST changes: +ASPI-1 PO; -ASPI-1071 PO; +CARV6.253 PO; +INSU100V9 SQ; +LISI-642 PO; -LISI10TA PO; -VENL37.55 PO
[2020-09-09] MEDS ORDERED: ATOR20TA66 PO (08:49)
[2020-09-09] MEDS ORDERED: CARV6.252 PO (08:50)
[2020-09-09] MEDS ORDERED: CLOP75TA33 PO (08:51)
[2020-09-09] MEDS ORDERED: LISI-790 PO (08:52)
[2020-09-09] MEDS ORDERED: [UNRECOGNIZED DRUG - OTHER] (08:57)
[2020-09-09] MEDS ORDERED: fentaNYL/PF 50MCG/1 ML 2ML syringe ONE (09:12)
[2020-09-09] MEDS ORDERED: MIDAZolam 1 MG/ML 5ML VIAL ONE (09:12)
[2020-09-09] MEDS ORDERED: LIDOcaine Viscous 15ml cup ONE (09:12)
== END 2020-09-09 11:22 | disposition home or self-care (01) ==
LOC: GI LAB 08:18
PROVIDERS: ATTEND Internal Medicine Gastroenterology
DX: K94.23 Gastrostomy malfunction (principal); K22.2 Esophageal obstruction; K44.9 Diaphragmatic hernia without obstruction or gangrene; E66.01 Morbid (severe) obesity due to excess calories; Z68.43 Body mass index [BMI] 50.0-59.9, adult; E11.9 Type 2 diabetes mellitus without complications; Z86.73 Personal history of transient ischemic attack (TIA), and cerebral infarction without residual deficits; Z79.01 Long term (current) use of anticoagulants; Z79.899 Other long term (current) drug therapy; Z91.041 Radiographic dye allergy status; Y83.8 Other surgical procedures as the cause of abnormal reaction of the patient, or of later complication, without mention of misadventure at the time of the procedure; Y92.89 Other specified places as the place of occurrence of the external cause
CPT/HCPCS: 43247; 99152; 99153; C1773; J2250; J3010; J7040; 43235; A4620

== ENCOUNTER 2020-12-04 10:30 | Emergency (ER) | payer MEDICARE, MEDICAID ==
[~2020-12-04] VITALS: Ht 157.5 cm; Wt 147.4 kg
[~2020-12-04 10:30] MED LIST changes: -ASPI-1 PO; +CARV6.252 PO; -CARV6.253 PO; -CLOP75TA15 PO; +CLOP75TA33 PO; -INSU100V9 SQ; -LISI-642 PO; +LISI-790 PO; +[UNRECOGNIZED DRUG - OTHER]
[2020-12-04 11:22] LABS: BASOPHILS % (AUTO) 0.4 % (0-1); EOSINOPHILS # (AUTO) 0.1 X10'3 (0-0.9); EOSINOPHILS % (AUTO) 0.8 % (0-6); HEMOGLOBIN 14.9 g/dl (12.0-16.0); LYMPHOCYTES # (AUTO) 1.3 X10'3 (1.1-4.8); LYMPHOCYTES % (AUTO) 10.3 % (21-51); MEAN CORPUSCULAR HEMOGLOBIN 27.9 PG (27.0-31.0); MEAN CORPUSCULAR HGB CONC 32.4 g/dL (33.0-36.5); MEAN CORPUSCULAR VOLUME 86.1 FL (78-98); MEAN PLATELET VOLUME 7.5 FL (7.4-10.4); MONOCYTES # (AUTO) 0.6 X10'3 (0-0.9); MONOCYTES % (AUTO) 5.1 % (2-12); NEUTROPHILS # (AUTO) 10.4 X10'3 (1.8-7.7); NEUTROPHILS % (AUTO) 83.4 % (42-75); PLATELET COUNT 366 X10'3 (140-440); RED BLOOD COUNT 5.34 X10'6 (4.20-5.60); RED CELL DISTRIBUTION WIDTH 14.8 % (11.5-14.5); WHITE BLOOD COUNT 12.5 X10'3 (4.5-11.0)
[2020-12-04 11:34] LABS: PARTIAL THROMBOPLASTIN TIME 24 SECONDS (22-32)
[2020-12-04 11:51] LABS: ALANINE AMINOTRANSFERASE 29 U/L (12-78); ALBUMIN/GLOBULIN RATIO 0.7 (1.1-1.5); ALKALINE PHOSPHATASE 112 IU/L (46-116); ANION GAP 10 (8-16); ASPARTATE AMINO TRANSFERASE 25 U/L (10-37); BILIRUBIN,TOTAL 0.4 MG/DL (0.1-1.0); BLOOD UREA NITROGEN 15 MG/DL (7-18); BUN/CREATININE RATIO 17.6 (6.6-38.0); CALCIUM 8.5 MG/DL (8.5-10.1); CHLORIDE 103 MMOL/L (99-107); CREATININE 0.85 MG/DL (0.40-0.90); ETHANOL < 0.010 GM/DL (0.0-0.010); GLUCOSE 247 MG/DL (70-104); POTASSIUM 3.9 MMOL/L (3.5-5.1); SODIUM 137 MMOL/L (135-145); TOTAL CARBON DIOXIDE 24.2 MMOL/L (24-32); TOTAL PROTEIN 7.1 G/DL (6.4-8.2); eGFR 71 ML/MIN
--- NOTE | 2020-12-04 12:29 | NUR ---
Pt spouse called for update, Sanjay Thurston [phone], will call back
[2020-12-04] MEDS ORDERED: ketorolac tromethamine 15mg/ml inj. IV ONE (12:35)
[2020-12-04] MEDS ORDERED: ondansetron/PF 4mg/2ml inj IV ONE (12:35)
[2020-12-04 13:44] VITALS: BP 186/85
== END 2020-12-04 13:45 | disposition home or self-care (01) ==
LOC: ER 10:31
DX: S00.03XA Contusion of scalp, initial encounter (principal); R07.89 Other chest pain; W10.8XXA Fall (on) (from) other stairs and steps, initial encounter; Y93.89 Activity, other specified; Y92.89 Other specified places as the place of occurrence of the external cause; Y99.8 Other external cause status
CPT/HCPCS: 36415; 70450; 70486; 71045; 71250; 72125; 74176; 80053; 80320; 85025; 85610; 85730; 96374; 96375; 99285; J1885; J2405

== ENCOUNTER 2022-05-24 13:36 | Emergency (ER) | payer MEDICARE, MEDICAID ==
[~2022-05-24] VITALS: Ht 157.5 cm; Wt 125.0 kg
[2022-05-24 14:12] VITALS: BP 158/95
== END 2022-05-24 21:06 | disposition left against medical advice (07) ==
LOC: ER 13:37
DX: I10 Essential (primary) hypertension (principal); Z53.21 Procedure and treatment not carried out due to patient leaving prior to being seen by health care provider

== ENCOUNTER 2023-02-11 09:46 | Emergency (ER) | payer MEDICARE, MEDICAID ==
[~2023-02-11] VITALS: Ht 157.5 cm; Wt 141.0 kg
[2023-02-11 11:21] VITALS: BP 132/91; PULSE 83; RESP 16; O2SAT 98
[2023-02-11] MEDS ORDERED: LIDOcaine 1% 30ml preserv. free vial IJ ONE (12:15)
[2023-02-11] MEDS ORDERED: SULF1TAB49 PO (14:28)
== END 2023-02-11 14:45 | disposition home or self-care (01) ==
LOC: ER 09:47
DX: L03.031 Cellulitis of right toe (principal); I10 Essential (primary) hypertension; J45.909 Unspecified asthma, uncomplicated; E11.9 Type 2 diabetes mellitus without complications; Z91.041 Radiographic dye allergy status; Z79.2 Long term (current) use of antibiotics; Z98.890 Other specified postprocedural states
CPT/HCPCS: 11750; 99285; A6449